=== PATIENT | female | born 1970 | race African-American/Black ===

== ENCOUNTER 2018-05-17 21:51 | Emergency (ER) | payer BC, OTHER | END 2018-05-17 22:40 | disposition home or self-care (01) | LOC: ER 21:51 | DX: M79.1 Myalgia (principal); V40.6XXA Car passenger injured in collision with pedestrian or animal in traffic accident, initial encounter; Y93.89 Activity, other specified; Y92.89 Other specified places as the place of occurrence of the external cause; Y99.8 Other external cause status | CPT/HCPCS: 99283 ==

== ENCOUNTER 2018-07-28 00:23 | Emergency (ER) | payer BC, OTHER ==
[~2018-07-28] VITALS: Ht 175.3 cm; Wt 145.1 kg
[~2018-07-28 00:23] MED LIST: CYCL10TA2 PO; NAPR-514 PO
[2018-07-28 01:02] LABS: BILIRUBIN,URINE NEGATIVE (NEG); CLARITY,URINE CLOUDY; COLOR,URINE RED; NITRITE,URINE NEGATIVE (NEG); PROTEIN,URINE 100 mg/dL (NEG-TRACE)
[2018-07-28 01:35] LABS: BACTERIA,URINE MODERATE /HPF (0-FEW); RBC,URINE TNTC /HPF (0-2); SQUAMOUS EPITHELIAL CELL,UR OCC /LPF; WBC,URINE 20-40 /HPF (0-4)
--- NOTE | 2018-07-28 01:41 | PHYS DOC ---
Past Medical History Past Medical History: No Pertinent History Alcohol Use: None Drug Use: None Adult General Chief Complaint Chief Complaint: BLOOD IN URINE [facility] Patient is a 47 year old female who presents with dysuria and hematuria Patient noted onset of frequency earlier today which progressed to dysuria this evening around 8:00 with blood. Tonight at around 11:00 pm, she had severe dysuria with pain lower back pain, no fevers or vomiting. She thinks she has a urinary tract infection and presents for care. Patient is diabetic. She denies polyuria or polydipsia or high blood sugars at this time. Review of Systems Review of Systems Constitutional: Denies fever or chills Eyes: Denies change in visual acuity, redness, or eye pain HENT: Denies nasal congestion or sore throat Respiratory: Denies cough or shortness of breath Cardiovascular: No additional information not addressed in HPI GI: Denies abdominal pain, nausea, vomiting, bloody stools or diarrhea : With dysuria and hematuria Musculoskeletal: with low back pain, denies joint pain Integument: Denies rash or skin lesions Neurologic: Denies headache, focal weakness or sensory changes Endocrine: Denies polyuria or polydipsia All other systems were reviewed and found to be within normal limits, except as documented in this note. Current Medications Current Medications Current Medications Medications (Trade) Dose Ordered Sig/Sandi Start Time Stop Time Status Last Admin Dose Admin Ceftriaxone Sodium (Rocephin Im) 1 gm 1X ONCE 07/28/18 02:30 07/28/18 02:31 DC 07/28/18 02:24 1 GM Phenazopyridine HCl (Pyridium) 200 mg 1X ONCE 07/28/18 02:30 07/28/18 02:31 DC 07/28/18 02:24 200 MG Allergies Allergies Allergies Coded Allergies Type Severity Reaction Last Updated Verified No Known Drug Allergies 07/28/18 No Physical Exam Physical Exam Constitutional: Well developed, well nourished, no acute distress, non-toxic appearance. HENT: Normocephalic, atraumatic, bilateral external ears normal, oropharynx moist, no oral exudates, nose normal. Eyes: PERRLA, EOMI, conjunctiva normal, no discharge. Neck: Normal range of motion, no tenderness, supple, no stridor. Cardiovascular:Heart rate regular rhythm, no murmur Lungs & Thorax: Bilateral breath sounds clear to auscultation Abdomen: Bowel sounds normal, soft, with suprapubic tenderness, no masses, no pulsatile masses. Skin: Warm, dry, no erythema, no rash. Back: with lower back tenderness, no CVA tenderness. Extremities: No tenderness, no cyanosis, no clubbing, ROM intact, no edema. Neurologic: Alert and oriented X 3, normal motor function, normal sensory function, no focal deficits noted. Psychologic: Affect normal, judgement normal, mood normal. Current Patient Data Vital Signs Vital Signs Date Time Temp Pulse Resp B/P (MAP) Pulse Ox O2 Delivery O2 Flow Rate FiO2 07/28/18 04:00 87 20 126/68 (87) 96 Room Air 07/28/18 01:34 98.0 98.0 Lab Values Laboratory Tests Test 07/28/18 00:05 07/28/18 00:25 07/28/18 02:01 Urine Test Negative (NEG) Urine Collection Type Unknown Urine Color Red Urine Clarity Cloudy Urine pH 6.0 Urine Specific Bruning 1.025 Urine Protein 100 mg/dL (NEG-TRACE) Urine Glucose (UA) >=1000 mg/dL (NEG) Urine Ketones (Stick) Trace mg/dL (NEG) Urine Blood Large (NEG) Urine Nitrite Negative (NEG) Urine Bilirubin Negative (NEG) Urine Urobilinogen Dipstick 1.0 mg/dL (0.2 mg/dL) Urine Leukocyte Esterase Moderate (NEG) Urine RBC Tntc /HPF (0-2) Urine WBC 20-40 /HPF (0-4) Urine Squamous Epithelial Cells Occ /LPF Urine Bacteria Moderate /HPF (0-FEW) Glucose (Fingerstick) 116 mg/dL (70-99) H EKG EKG [] Radiology/Procedures Radiology/Procedures [facility] [address] [address] IMAGING REPORT Signed PATIENT: ARIANNE VALENZUELA ACCOUNT: [id number] : 1970 LOCATION: ER AGE: 47 SEX: F EXAM STATUS: REG ER ORD. PHYSICIAN: DICK JACOBSON MD REASON: hematuria PROCEDURE: CT ABDOMEN PELVIS WO CONTRAST CT abdomen and pelvis without contrast: Reason for examination: Hematuria. Helical images were obtained through the abdomen pelvis with no intravenous or oral contrast. Reconstruction was performed in sagittal and coronal planes. Exposure: One or more of the following individualized dose reduction techniques were utilized for this examination: 1. Automated exposure control 2. Adjustment of the mA and/or kV according to patient size 3. Use of iterative reconstruction technique. There is a calcified granuloma posteriorly at the left lung base. No infiltrates or pleural effusions are seen. The heart size is normal with no pericardial effusion evident. Calcified granuloma are seen in the subcutaneous carinal region of the mediastinum. There are several calcifications present in the liver and spleen without other focal lesions. Gallbladder shows cholelithiasis with a contracted gallbladder. No abnormalities are seen at the adrenal glands or pancreas. The kidneys show no renal masses, renal calculi, hydronephrosis or evidence of obstructive uropathy. No abnormality seen at the appendix. There are diverticuli in the superior sigmoid colon but no evidence of diverticulitis. The small intestinal tract is not distended and shows no obstruction. The stomach shows large amount of gastric content. No abnormality seen at the bladder. IUD is present in the uterus. No abnormality is seen at the left ovary. There is a enlarged right ovary measuring approximately 4.5 x 4.2 cm in greatest dimension which may contain a cyst. Further evaluation with ultrasound should be considered. No free fluid is seen in the pelvis. No acute bony abnormalities are seen. IMPRESSION: Hepatic and splenic granuloma and granuloma in the left lung and subcarinal mediastinum. Cholelithiasis with contracted gallbladder. No renal calculi or obstructive uropathy. Enlarged right ovary measuring 4.5 cm in greatest dimension which may contain a cyst. No abnormality seen at the appendix. Electronically signed by: Chhaya Hightower MD (07/28/2018 3:30 AM) [facility] DICTATED and SIGNED BY: CHHAYA HIGHTOWER MD DATE: 07/28/18 0315 Course & Med Decision Making Course & Med Decision Making Pertinent Labs and Imaging studies reviewed. (See chart for details) Emergency Department Course Patient presents with dysuria, hematuria and back pain DDx-UTI, kidney stone, pyelonephritis Patient was stable in the ED. U/A showed hematuria with WBCs. test negative. POC glucose 116. Abdominal pelvic CT scan showed no kidney stone with diverticulosis, right ovarian cyst, gallstones, granulomas in liver spleen and left lung. The patient was given Rocephin IM. urine sent for culture. Patient given CT scan results and advised to follow-up with PCP and [employer] referral. Patient advised to return to the ED if she develops worse pain, fevers, SOB or vomiting. Dragon Disclaimer Dragon Disclaimer This electronic medical record was generated, in whole or in part, using a voice recognition dictation system. Departure Departure Impression: Primary Impression: UTI (urinary tract infection) Additional Impressions: Granuloma of liver Lung calcification Gall stones Diverticulosis Right ovarian cyst Disposition: HOME, SELF-CARE Condition: STABLE Referrals: KOBI FUNEZ MD (PCP) Follow-up for further evaluation. Call today for an appointment Patient Instructions: Cholelithiasis, Diverticulosis, Ovarian Cyst, Urinary Tract Infection Additional Instructions: If you develop worse pain, fevers, vomiting return to the Emergency Department Scripts Hydrocodone/Apap 5-325 (NORCO 5-325 TABLET) 1 Each Tablet 1 TAB PO QID, #12 TAB Prov: DICK JACOBSON MD 07/28/18 Phenazopyridine Hcl (PYRIDIUM) 200 Mg Tablet 200 MG PO TID for 2 Days, #6 TAB Prov: DICK JACOBSON MD 07/28/18 Cephalexin (KEFLEX) 500 Mg Capsule 1 CAP PO TID, #21 CAP Prov: DICK JACOBSON MD 07/28/18 Problem Qualifiers Primary Impression: UTI (urinary tract infection) Urinary tract infection type: acute cystitis Hematuria presence: with hematuria Qualified Codes: N30.01 - Acute cystitis with hematuria Additional Impressions: Diverticulosis Diverticulosis site: diverticulosis of large intestine Diverticulosis bleeding: diverticulosis without bleeding Qualified Codes: K57.30 - Diverticulosis of large intestine without perforation or abscess without bleeding DICK JACOBSON MD Jul 28, 2018 01:41
[2018-07-28 02:18] LABS: U PREG PATIENT NEGATIVE (NEG)
[2018-07-28] MEDS ORDERED: PHENAZOPYRIDINE 200 MG TABLET. PO ONE (02:30)
[2018-07-28] MEDS ORDERED: cefTRIAXone IM 1 GM VIAL IM ONE (02:30)
--- NOTE | 2018-07-28 03:33 | RAD ---
CT abdomen and pelvis without contrast: Reason for examination: Hematuria. Helical images were obtained through the abdomen pelvis with no intravenous or oral contrast. Reconstruction was performed in sagittal and coronal planes. Exposure: One or more of the following individualized dose reduction techniques were utilized for this examination: 1. Automated exposure control 2. Adjustment of the mA and/or kV according to patient size 3. Use of iterative reconstruction technique. There is a calcified granuloma posteriorly at the left lung base. No infiltrates or pleural effusions are seen. The heart size is normal with no pericardial effusion evident. Calcified granuloma are seen in the subcutaneous carinal region of the mediastinum. There are several calcifications present in the liver and spleen without other focal lesions. Gallbladder shows cholelithiasis with a contracted gallbladder. No abnormalities are seen at the adrenal glands or pancreas. The kidneys show no renal masses, renal calculi, hydronephrosis or evidence of obstructive uropathy. No abnormality seen at the appendix. There are diverticuli in the superior sigmoid colon but no evidence of diverticulitis. The small intestinal tract is not distended and shows no obstruction. The stomach shows large amount of gastric content. No abnormality seen at the bladder. IUD is present in the uterus. No abnormality is seen at the left ovary. There is a enlarged right ovary measuring approximately 4.5 x 4.2 cm in greatest dimension which may contain a cyst. Further evaluation with ultrasound should be considered. No free fluid is seen in the pelvis. No acute bony abnormalities are seen. IMPRESSION: Hepatic and splenic granuloma and granuloma in the left lung and subcarinal mediastinum. Cholelithiasis with contracted gallbladder. No renal calculi or obstructive uropathy. Enlarged right ovary measuring 4.5 cm in greatest dimension which may contain a cyst. No abnormality seen at the appendix. Electronically signed by: Chhaya Cruz MD (07/28/2018 3:30 AM) [facility]
[2018-07-28] MEDS ORDERED: PHEN-318 PO (03:55)
[2018-07-28] MEDS ORDERED: CEPH-264 PO (03:55)
[2018-07-28] MEDS ORDERED: HYDR-971 PO (03:55)
[2018-07-28 04:00] VITALS: BP 126/68
== END 2018-07-28 04:00 | disposition home or self-care (01) ==
LOC: ER 00:23
DX: N30.01 Acute cystitis with hematuria (principal); K57.30 Diverticulosis of large intestine without perforation or abscess without bleeding; N83.201 Unspecified ovarian cyst, right side; K80.20 Calculus of gallbladder without cholecystitis without obstruction; K75.3 Granulomatous hepatitis, not elsewhere classified; J98.4 Other disorders of lung; M54.5 Low back pain
CPT/HCPCS: 74176; 81001; 81025; 82962; 96372; 99285; J0696